=== PATIENT | male | born 1995 | race Caucasian/White ===

== ENCOUNTER 2019-12-01 21:59 | Emergency (ER) | payer BC, SELFPAY ==
[2019-12-01] VITALS (13 sets, daily range): BP systolic 113–127; BP diastolic 73–79; PULSE 103–115; RESP 16–20; TEMP 38.1; O2SAT 94–98; BMI 24.1
--- NOTE | 2019-12-01 22:46 | ED_ITS ---
HPI - Fever General: Chief Complaint: Fever Stated Complaint: fever Time Seen by Provider: 12/01/19 22:30 History of Present Illness: HPI Narrative: Patient is a 24-year-old male comes to the ED with fever, chills, body aches, nasal congestion and cough. Patient states symptoms started yesterday evening. He denies any sick contacts or been around anyone who has been tested positive for influenza. Patient does have a headache currently. States he's been eating and drinking normally and trying to drink plenty of fluids. Patient took ibuprofen this morning to help with symptoms. Denies ear pain, sore throat, chest pain, shortness of breath, abdominal pain, nausea, vomiting, diarrhea, constipation, dysuria, hematuria. Review of Systems General: Reports: 10 or more systems reviewed and unremarkable except in HPI and below PFSH ED PFSH: Statuses (acute, chronic, etc) shown below reflect problem list status as previously entered and may not be historically accurate Social History Smoking and tobacco status: never smoked Physical Exam Narrative: EXAM NARRATIVE: Patient is a 24-year-old male who is laying comfortably on the exam bed In the room. He is showing signs of acute distress, pain or respiratory dist ress. Const: COMMON NORMALS: oriented x3 HENMT: COMMON NORMALS: normocephalic HEAD & SCALP: normocephalic MOUTH: oral and palatal mucosa normal THROAT: posterior oropharynx normal and uvula midline OTHER: TM bilaterally?cloudy fluid but no bulging or erythema. Neck/C-Spine: COMMON NORMALS: supple GENERAL: Yes normal visual inspection Resp: COMMON NORMALS: normal respiratory effort, no retractions, no use of accessory muscles and clear to auscultation bilaterally AUSCULTATION: clear to auscultation bilaterally Cardio: COMMON NORMALS: regular rate, regular rhythm, S1 normal heart sound, S2 normal heart sound, no gallops, no clicks, no murmurs and peripheral pulses 2+ throughout RATE: regular rate RHYTHM: regular rhythm HEART SOUNDS: S1 normal and S2 normal PERIPHERAL PULSES: pulses 2+ throughout GI: COMMON NORMALS: normal to inspection, nondistended, normoactive bowel sounds, soft to palpation, non-tender and no masses PALPATION: Yes soft : COMMON NORMALS: Yes no CVA tenderness BLADDER/KIDNEY EXAM: Yes no CVA tenderness Back/Pelvis: COMMON NORMALS: no CVA tenderness Extremity: COMMON NORMALS: normal to inspection Neuro: COMMON NORMALS: oriented x3 and moves all extremities Skin: COMMON NORMALS: no rashes or lesions noted and skin turgor normal NARRATIVE SKIN EXAM: Patient's skin was little clammy to the touch near the neck and wrist. GENERAL SKIN EXAM: no rashes or lesions noted and turgor normal Course Vital Signs: Vital signs: Vital Signs Temperature 100.6 F H 12/01/19 22:47 Pulse Rate 95 12/02/19 00:02 Respiratory Rate 14 12/02/19 00:02 Blood Pressure 101/56 12/02/19 00:02 Pulse Oximetry 95 12/02/19 00:02 MDM - Fever Lab Data: Attestation: I reviewed the patient's lab results. Labs: Lab Results 12/01/19 Range/Units 22:36 Influenza Type A A g Positive H (Negative) POC Influenza B Ag Negative (Negative) Imaging Data^: CXR: Attestation: I personally reviewed and interpreted this imaging study as follows: My impression: No acute findings. Pending final radiologist report. Discharge Plan Discharge Patient Disposition: Home, Self-Care Clinical Impression: Influenza A Condition: Stable Prescriptions: New Tamiflu 75 mg capsule 75 mg PO BID 5 Days Qty: 10 RF: 0 No Action No Known Home Medications RF: 0 Discharge Orders: Discharge Order (Routine); Ordered 12/01/19 Ordered By: Mason Pelayo Referrals: Mason Bermudez MD [Family Provider] - Discharge Diet: Regular Discharge Activity: Increase activity as tolerated Patient Instructions: Influenza (ED) Activity Restrictions/Additional Instructions: Follow-up with PCP in 7 days for reevaluation. Take Tamiflu as prescribed. He can take [id number] ibuprofen or Tylenol for fevers. Drink plenty of fluids and stay hydrated. Make sure to use good hand hygiene and to cover mouth when you cough or sneeze to help prevent spread of influence. Discharge Date/Time: 12/02/19 00:02 Coding Level of Care Code ED Art Therapy Specialist for Nona Conde
--- NOTE | 2019-12-01 22:56 | XR_ITS ---
WS: [id number] CHEST 2 VIEWS HISTORY: cough and fever COMPARISON: None available. Lungs: Clear with no abnormality. No pleural effusion or pneumothorax. Cardiac size: Normal. Mediastinum/Aorta: Normal mediastinum. Bones: Normal. XR/XR chest 2V* [id number] IMPRESSION: Normal chest.
[2019-12-01] MEDS: acetaminophen 500 mg Tablet PO (23:04)
[2019-12-01 23:30] LABS: Influenza A by IFA Positive (Negative); Influenza B by IFA Negative (Negative)
[2019-12-02 00:02] VITALS: BP 101/56; PULSE 95; RESP 14; O2SAT 95
== END 2019-12-02 00:02 | disposition home or self-care (01) ==
PROVIDERS: Emergency Medicine; Emergency Provider Physician Assistant; Family Provider General Practice
DX: J10.1 Influenza due to other identified influenza virus with other respiratory manifestations (principal)
CPT/HCPCS: 71046; 87804; 99281; 99283

== ENCOUNTER 2025-02-10 16:26 | Outpatient (CLI) | payer BC, MEDICAID, SELFPAY ==
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
== END 2025-02-10 16:27 | disposition home or self-care (01) ==
PROVIDERS: PCP Nurse Practitioner Family; Visit Provider Nurse Practitioner Family
DX: M54.2 Cervicalgia (principal); M54.6 Pain in thoracic spine; V49.9XXA Car occupant (driver) (passenger) injured in unspecified traffic accident, initial encounter
CPT/HCPCS: 72040; 72070

== ENCOUNTER 2025-07-25 13:06 | Outpatient (CLI) | payer BC, MEDICAID, SELFPAY ==
--- NOTE | 2025-07-25 13:15 | MR_ITS ---
WS: [id number] MRI THORACIC SPINE WITHOUT CONTRAST TECHNIQUE: Sagittal T1, T2 and STIR imaging. Axial T2 imaging. Noncontrast imaging obtained. CLINICAL INFORMATION: BACK PAIN COMPARISON: None. FINDINGS: Mild thoracic curve. Mild thoracic kyphosis. No acute compression fractures. Shallow central protrusions in the mid thoracic spine at T4-T6. Tiny annular fissures at T5-6 and T6-7. No high-grade central canal stenosis. Cord signal is normal. Mild facet arthropathy lower thoracic spine. Normal caliber descending thoracic aorta. Adrenal glands are normal. Small hepatic cyst. MR/MR thoracic spin wo con* [id number] IMPRESSION: 1. No acute thoracic compression fractures. 2. Minimal disc bulging in the midthoracic spine with a few shallow protrusion s more prominent at T5-T6 and T6-T7. Tiny annular fissures at T5-T6 and T6-7 3. Mild facet arthropathy lower thoracic spine. 4. Cord signal is normal.
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
== END 2025-07-25 13:07 | disposition home or self-care (01) ==
LOC: RAD 13:09
PROVIDERS: PCP Nurse Practitioner Family; Visit Provider Nurse Practitioner Family
DX: M54.2 Cervicalgia (principal); M54.6 Pain in thoracic spine
CPT/HCPCS: 72141; 72146